=== PATIENT | male | born 1965 | race American Indian/Alaskan Native ===

== ENCOUNTER 2016-10-04 16:06 | Emergency (ER) | payer MEDICAID ==
[2016-10-04 16:26] VITALS: BMI 29.8
[2016-10-04] MEDS ORDERED: Sodium Chloride 0.9% 1,000 ML IV ONE ×2 (16:40→18:54)
[2016-10-04] MEDS ORDERED: Sodium Chloride 0.9% 1,000 ML ONE ×2 (16:59→18:48)
[2016-10-04 17:00] LABS: BASO % 0.5 % (0.0-2.0); EOS # 0.1 K/uL (0.0-0.7); HEMOGLOBIN 12.3 g/dL (12.0-18.0); LYMPH # 3.5 K/uL (1.0-4.3); LYMPH % 46.1 % (20.0-40.0); MEAN CORPUSCULAR HEMOGLOBIN 28.1 pg (27.0-31.0); MEAN CORPUSCULAR HGB CONC 32.7 g/dL (33.0-37.0); MEAN PLATELET VOLUME 11.6 fL (7.2-11.7); MONO # 0.6 K/uL (0.0-0.8); MONO % 7.7 % (0.0-10.0); NEUT # 3.4 K/uL (1.8-7.0); NEUT % 44.7 % (50.0-75.0); RBC 4.38 Mil/uL (4.40-5.90); RED CELL DISTRIBUTION WIDTH 12.7 % (11.5-14.5); WHITE BLOOD COUNT 7.6 K/uL (4.8-10.8)
[2016-10-04 17:05] LABS: URINE BILIRUBIN NEGATIVE (NEGATIVE); URINE BLOOD NEGATIVE (NEGATIVE); URINE CLARITY Clear (Clear); URINE COLOR Yellow (YELLOW); URINE GLUCOSE (UA) 3+ mg/dL (Normal); URINE LEUKOCYTE ESTERASE NEG Leu/uL (Negative); URINE NITRATE NEGATIVE (NEGATIVE); URINE PROTEIN NEGATIVE (NEGATIVE); URINE UROBILINOGEN NORMAL mg/dL (0.2-1.0)
[2016-10-04 17:08] LABS: ALBUMIN 4.2 g/dL (3.5-5.0)
[2016-10-04 17:11] LABS: ALB/GLOB RATIO 1.2 (1.0-2.1); ALT/SGPT 103 U/L (21-72); AST/SGOT 81 U/L (17-59); BLOOD UREA NITROGEN 17 mg/dL (9-20); GFR AFRICAN-AMERICAN > 60; GFR NON-AFRICAN AMERICAN > 60
[2016-10-04 17:12] LABS: CALCIUM 9.1 mg/dl (8.6-10.4); MAGNESIUM 1.9 mg/dL (1.6-2.3)
[2016-10-04 17:17] LABS: BARBITURATES, UR POSITIVE (NEGATIVE); BENZODIAZEPINES, UR POSITIVE (NEGATIVE)
[2016-10-04 17:21] LABS: OPIATES, UR NEGATIVE (NEGATIVE); PHENCYCLIDINE, UR NEGATIVE (NEGATIVE)
[2016-10-04] MEDS ORDERED: (Novolin R) Insulin Human Regular 100 units/ml vial IV STA (17:28)
[2016-10-04] MEDS ORDERED: (Novolin R) Insulin Human Regular 100 units/ml vial ONE (17:37)
[2016-10-04 18:20] VITALS: RESP 18; O2SAT 100
--- NOTE | 2016-10-04 19:44 | C.PDOC ---
Time Seen by Provider: 10/04/16 16:35 Chief Complaint (Nursing): High Blood Sugar History Per: Patient Onset/Duration Of Symptoms: Days (about 3 weeks) Current Symptoms Are (Timing): Still Present Severity: Moderate Current Diabetic Medications: Insulin, Oral Medication Causative (Exacerbating) Factor(s): Missed Taking Medication (for about 1 month) Associated Infectious Symptoms: Urinary Frequency Treatment Prior To Provider Evaluation: None Additional History Per: Prior Records Past Medical History Reviewed: Historical Data, Nursing Documentation, Vital Signs Vital Signs: Last Vital Signs Temp 97.8 F 10/04/16 18:20 Pulse 81 10/04/16 18:20 Resp 18 10/04/16 18:20 BP 115/67 10/04/16 18:20 Pulse Ox 100 10/04/16 18:20 - Medical History PMH: Diabetes Family History: States: Unknown Family Hx - Social History Hx Tobacco Use: Yes Hx Alcohol Use: Yes Hx Substance Use: Yes - Immunization History Hx Tetanus Toxoid Vaccination: No Hx Influenza Vaccination: No Hx Pneumococcal Vaccination: No Review Of Systems Except As Marked, All Systems Reviewed And Found Negative. Constitutional: Negative for: Fever, Weakness Cardiovascular: Negative for: Chest Pain Respiratory: Negative for: Shortness of Breath Gastrointestinal: Negative for: Vomiting, Abdominal Pain, Diarrhea Genitourinary: Positive for: Frequency. Negative for: Dysuria Musculoskeletal: Negative for: Neck Pain Skin: Negative for: Rash Neurological: Negative for: Weakness, Numbness, Seizures, Altered Mental Status Psych: Negative for: Psychosis, Suicidal ideation Physical Exam - Physical Exam Appears: Non-toxic, No Acute Distress Skin: Normal Color, Warm, Dry, No Rash Head: Atraumatic, Normacephalic Eye(s): bilateral: Normal Inspection, PERRL, EOMI Neck: Normal ROM, Supple Cardiovascular: Rhythm Regular Respiratory: Normal Breath Sounds, No Accessory Muscle Use Gastrointestinal/Abdominal: Soft, No Tenderness Back: No CVA Tenderness Extremity: Normal ROM Neurological/Psych: Oriented x3, Normal Motor, Normal Sensation ED Course And Treatment - Laboratory Results Result Diagrams: 10/04/16 16:55 10/04/16 16:55 Lab Interpretation: Abnormal Interpretation Of Abnormal: Hyperglycemia. No signs of DKA. O2 Sat by Pulse Oximetry: 100 Pulse Ox Interpretation: Normal Progress Note: Pt feels much better and wants to go home. Reassessment Condition: Improved Progress - Interventions Interventions:: Observation, Intravenous fluid - Medications Administered Intravenous: Other (Insulin) - Data Reviewed Data Reviewed: Lab, Old records - Patient Status Patient status: Mostly improved - Continuity of Care Discussed patient case with:: Patient, ED Nurse - Patient Plan Patient Plan: Discharge, F/U with PCP Disposition Counseled Patient/Family Regarding: Studies Performed, Diagnosis, Need For Followup, Rx Given, Smoking Cessation - Disposition Referrals: Sumeet Tucker MD [Staff Provider] - Disposition: HOME/ ROUTINE Disposition Time: 19:50 Condition: IMPROVED Additional Instructions: Take your medications as prescribed. Follow up with your doctor within 1-2 days. Return to the ER if you develop worsening of symptoms or if you have any other concerns. Prescriptions: Blood Sugar Diagnostic [Glucose Test Strip] 1 packet MC PRN #1 pkg Glucose Meter [Blood Glucose Monitoring System] 1 dev XX PRN #1 dev Insulin NPH Hum/Reg Insulin Hm [Humulin 70/30 Kwikpen] 1 dose SQ BID #1 insuln.pen metFORMIN [glucOPHAGE] 500 mg PO BID #60 tab Instructions: Diabetic Hyperglycemia (ED) - Clinical Impression Clinical Impression: Uncontrolled diabetes mellitus
[2016-10-04 20:11] VITALS: BP 115/75; PULSE 82; TEMP 98
== END 2016-10-04 20:10 | disposition home or self-care (01) ==
LOC: C.ER 16:06
DX: E11.65 Type 2 diabetes mellitus with hyperglycemia (principal)
CPT/HCPCS: 80053; 80324; 80345; 80346; 80349; 80353; 80358; 80361; 81001; 82009; 82948; 83735; 83992; 85025; 96361; 96374; 99285; J7040